=== PATIENT | female | born 1960 | race Caucasian/White ===

== ENCOUNTER → 2019-01-15 10:05 | Outpatient (CLI) | payer OTHER | END | disposition home or self-care (01) | LOC: D.HCCARDIO 10:05 | PROVIDERS: ATTEND Internal Medicine Cardiovascular Disease | DX: R94.31 Abnormal electrocardiogram [ECG] [EKG] (principal) ==

== ENCOUNTER 2019-02-11 06:56 | Outpatient (CLI) | payer OTHER ==
[~2019-02-11] VITALS: Ht 172.7 cm; Wt 81.8 kg
--- NOTE | ~2019-02-11 | HEMODYNAMI ---
PATIENT:PAWAN JOSEPH MEDICAL RECORD: [id number] : 58 LOCATION:[facility] ADMISSION DATE: 02/11/19 Generatedon:02/11/201912:33 Patient name: PAWAN JOSEPH Patient #: [id number] SSN: [id number] : 1960 Date of study: 02/11/2019 Page: Of Hemodynamic Procedure Report Patient Data Patient Demographics Procedure consent was obtained First Name: PAWAN Gender: Female Last Name: OPAL : 1960 Middle Initial: MARILYN Age: 58 year(s) Patient #: [id number] Race: SSN: [id number] Additional ID: [id number] Contact details Address: [address] [place] [address] State: [place] City: [place] Zip code: [address] Past Medical History Allergies Allergen Reaction Date Comments Reported Morphine 02/11/2019 Admission Admission Data Admission Date: 02/11/2019 Admission Time: 6:56 Arrival Date: 02/11/2019 Arrival Time: 0:00 Insurance Payor: Private health insurance [facility] #: [id number] Height (in.): 68.11 BSA: 1.96 (m2) Height (cm.): 173 BMI: 27.4 (kg/m2) Weight (lbs.): 180.78 Weight (kg.): 82 Lab Results Lab Result Date: 02/11/2019 Lab Result Time: 0:00 Biochemistry Name Units Result Min Max BUN mg/dl 20 --(----)*- 7 18 Creatinine mg/dl 0.7 --(*---)-- 0.6 1.3 eGFR ml/min 90 --(*---)-- 90 120 NONAFRICAN CBC Name Units Result Min Max Hematocrit % 43.4 --(*---)-- 42 54 Hemoglobin g/dl 14.5 --(*---)-- 13.5 17.5 Procedure Procedure Types Cath Procedure Diagnostic Procedure [facility] w/[facility] Procedure Description Procedure Date Procedure Date: 02/11/2019 Procedure Start Time: 12:19 Procedure End Time: 12:30 Procedure Staff Name Function Ramon Cruz MD Performing Physician Maureen Burleson RT Monitor Rosa Patiño RT Monitor Leidy Peters RT Scrub Shayne Goss RN Nurse Procedure Data Cath Procedure Fluoroscopy Diagnostic fluoroscopy Total fluoroscopy Time: 1.4 time: 1.4 min min Diagnostic fluoroscopy Total fluoroscopy dose: 361 dose: 361 mGy mGy Contrast Material Contrast Material Type Amount (ml) Isovue 300 56 Entry Location Entry Primary Successful Side Size Upsize Upsize Entry Closure Sanches ccessful Closure Location (Fr) 1 (Fr) 2 (Fr) Remarks Device Remarks Radial Right 6 Fr Mechanical artery Short Compression Estimated blood loss: 5 ml Diagnostic catheters Device Type Used For End Catheter Placement DIAGNOSTIC [place] 110cm 5 Procedure Fr catheter ([id number]) Procedure Complications No complications Procedure Medications Medication Administration Route Dosage Oxygen etCO2 Nasal cannula 2 l/min Lidocaine 2% added to field 20 Heparin Flush Bag added to field 2 bags (1000units/500ml NS) 0.9% NaCl I.V. 100 ml/hr Radial Cocktail I.A. 1 syringe (Verapamil 2mg/Nitro 400mcg/Heparin 1500units) Versed I.V. 2 mg Fentanyl I.V. 50 mcg Versed I.V. 1 mg Fentanyl I.V. 50 mcg Hemodynamics Rest BSA: 1.96 (m2) HGB: 14.5 (g/dl) O2 Consumption: Estimated: 187.09 (ml/min) O2 Co nsumption indexed: Estimated:95.45 (ml/min/m) Heart Rate: 71 (bpm) Pressure Samples Time Site Value (mmHg) Purpose Heart Use Rate(bpm) 12:21 LV 112/-2,4 Snapshot 83 Gradients Valve Time Site Site Mean SEP/DFP Peak To Heart Use 1 2 (mmHg) (sec/min) Peak Rate (mmHg) (bpm) Aortic 12:22 LV AO 87 Snapshots Pre Cath Intra NCS Post Cath Vital Signs Time Heart Resp SPO2 etCO2 NIBP (mmHg) Rhythm Pain Sedation Rate (ipm) (%) (mmHg) Status Level (bpm) 12:09:42 72 12 98 31.1 145/89(116) NSR 0 (11) 10(A) , No pain 12:13:56 79 11 98 15.5 127/73(96) NSR 0 (11) 10(A) , No pain 12:18:12 84 15 94 0 117/65(87) NSR 0 (11) 10(A) , No pain 12:22:24 86 16 95 0 103/69(90) NSR 0 (11) 9(A) , No pain 12:26:29 83 14 94 17.7 101/70(95) NSR 0 (11) 10(A) , No pain 12:30:35 96 45.2 117/66(90) NSR 0 (11) 10(A) , No pain Medications Time Medication Route Dose Verified Delivered Reason Notes Effectiveness by by 12:13:23 Oxygen etCO2 2 l/min Ramon Buffie used for Nasal Anthony Goss RN procedure cannula 12:13:30 Lidocaine 2% added 20ml Ramon Ramon for local to vial Anthony Cruz MD anesthetic field 12:13:37 Heparin Flush added 2 bags Ramon Ramon used for Bag to Anthony Cruz MD procedure (1000units/500ml field NS) 12:13:46 0.9% NaCl I.V. 100 Ramon Buffie Per ml/hr Anthony Goss RN physician 12:13:53 Radial Cocktail I.A. 1 Ramon Ramon for (Verapamil syringe Anthony Cruz MD vasodilation 2mg/Nitro 400mcg/Heparin 1500units) 12:19:59 Versed I.V. 2 mg Ramon Buffie for sedation Anthony Goss RN 12:20:05 Fentanyl I.V. 50 mcg Ramon Buffie for sedation Anthony Goss RN 12:24:34 Versed I.V. 1 mg Ramon Buffie for sedation Anthony Goss RN 12:24:38 Fentanyl I.V. 50 mcg Ramon Buffie for sedation Anthony Goss RN Procedure Log Time Note 12:18:47 18:40:47 Rose Bud band inflated with 8cc of air. 18:40:47 Post right radial artery:stable 11:53:31 Informed consent obtained and on chart 11:53:50 Procedure Status Elective Heart Cath (OP). 11:53:50 Time tracking: Regular hours (M-F 7:00 - 5:00) 11:53:56 Plan of Care:Hemodynamics will remain stable., Cardiac rhythm will remain stable., Comfort level will be maintained., Respiratory function will remain adequate., Patient/ family verbilizes understanding of procedure., Procedure tolerated without complication., Recovers from procedure without complications.. 11:54:26 H&P Date Dictated: 02/11/2019 Within 30 days and on chart., New H&P dictated by physician.. 11:55:11 Stress Test: yes; abnormal ANTERIOR AND LATERALLY 11:56:39 Patient allergic to Morphine 11:56:52 Maureen Burleson RT(R) sent for patient. Start room use. 12:02:33 Arrival Date: 02/11/2019 12:00:00 AM 12:02:53 Insurance Payor : Private health insurance 12:03:03 Patient Height : 68.11 inches 12:03:10 Patient Weight : 180.78 lbs 12:04:00 Lab Result : Hemoglobin 14.5 g/dl 12:04:00 Lab Result : Hematocrit 43.4 % 12:04:00 Lab Result : eGFR NONAFRICAN 90 ml/min 12:04:00 Lab Result : BUN 20 mg/dl 12:04:00 Lab Result : Creatinine 0.7 mg/dl 12:04:15 Patient received from Pre/Post Procedure Room to CCL 1 Alert and oriented. Tansferred to table in Supine position. 12:04:18 Warm blankets applied, and yesenia hugger turned on for patient comfort. 12:04:19 Correct patient and procedure confirmed by team. 12:04:20 ECG and BP/O2 sat monitors applied to patient. 12:08:38 Vital chart was started 12:08:39 Baseline sample Acquired. 12:08:48 Rhythm: sinus rhythm 12:08:50 Full Disclosure recording started 12:12:11 Pre-procedure instructions explained to patient. 12:12:12 Pre-op teaching completed and patient verbalized understanding. 12:12:16 Family in patients room. 12:12:20 Patient NPO since Midnight. 12:12:24 Is the patient allergic to Iodine/contrast media? No. 12:12:28 Was the patient premedicated? Yes 12:12:34 Is patient on blood thinner?No 12:12:41 Patient diabetic? No. 12:12:56 Patient not . Patient is over age 55. 12:12:58 - 12:12:59 ----Pre-sedation anethsthesia assessment.---- 12:13:04 Previous problem with sedation/anesthesia? No ? 12:13:07 Snore? Yes 12:13:14 Sleep apnea? Yes 12:13:18 Deviated septum? No 12:13:21 Opens mouth fully? Yes 12:13:23 Oxygen 2 l/min etCO2 Nasal cannula was administered by Shayne Goss RN; used for procedure; Verbal order read back and verified. 12:13:24 Sticks out tongue? Yes 12:13:30 Lidocaine 2% 20ml vial added to field was administered by Ramon Cruz MD ; for local anesthetic; Verbal order read back and verified. 12:13:37 Heparin Flush Bag (1000units/500ml NS) 2 bags added to field was administered by Ramon Cruz MD; used for procedure; Verbal order read back and verified. 12:13:42 Airway obstruction? Yes possible sleep apnea 12:13:46 0.9% NaCl 100 ml/hr I.V. was administered by Shayne Goss RN; Per physician; Verbal order read back and verified. 12:13:48 Dentures? No ? 12:13:53 Radial Cocktail (Verapamil 2mg/Nitro 400mcg/Heparin 1500units) 1 syring e I.A. was administered by Ramon Cruz MD; for vasodilation; Verbal order read back and verified. 12:14:12 Modified Jorge Alberto's test Ulnar < 7 seconds 12:14:18 Patient pain scale 0/10 ?. 12:14:35 IV patent on arrival in left forearm with 0.9% NaCl at [facility]. 12:14:42 Pre procedure: right dorsailis pedis pulse 2+ Normal; easily identifiable; not easily obliterated 12:14:54 Lab results completed and on chart. 12:17:06 --------ALL STOP TIME OUT------ 12:17:06 Final Timeout: patient, procedure, and site verified with staff and physician. All members of the team are in agreement. 12:17:09 Right Radial & Right Groin site verified by team. 12:17:12 Fire Safety Assessment: A--An alcohol-based skin anteseptic being used preoperatively., C--Open oxygen or nitrous oxide is being used., D--An ESU, laser, or fiber-optic light is being used. 12:17:15 Physical assessment completed. ASA score P 2 - A patient with mild systemic disease as per Ramon Cruz MD. 12:17:18 1) 90+ Normal kidney functon but urine findings or structural abnormalities or genetic trait point to kidney disease. 12:17:20 Maximum allowable contrast dose (3.7 X eGFR X 0.75)250 ml. 12:17:24 Sedation plan: IV Moderate Sedation Medication:Versed, Fentanyl 12:17:27 Risk of Mortality: .1 12:17:30 Risk of blood transfusion: .4 12:17:32 Risk of FLOR: .2 12:17:36 Right Radial & Right Groin area was prepped with chlora-prep and draped in sterile fashion 12:17:37 Alarms reviewed by R. N. 12:17:38 Sharps counted by scrub and verified by R.N. 12:17:44 Procedure started. 12:19:07 Zero performed for pressure channel P1 12:19:27 Local anesthetic to right radial artery with Lidocaine 2% by Ramon Cruz MD.INITIAL ACCESS ONLY 12:19:38 Zero performed for pressure channel P1 12:19:53 Zero performed for pressure channel P1 12:19:59 Versed 2 mg I.V. was administered by Shayne Goss RN; for sedation; Verbal order read back and verified. 12:20:05 Fentanyl 50 mcg I.V. was administered by Shayne Goss RN; for sedation; Verbal order read back and verified. 12:20:16 A 6 Fr Short sheath was inserted into the Right Radial artery 12:20:25 Use device set Radial Dx or PCI 12:20:27 ACIST Syringe (01725) opened to sterile field. 12:20:27 Medline Cath Pack ([id number]) opened to sterile field. 12:20:28 Bag Decanter (2002) opened to sterile field. 12:20:29 ACIST Hand Control (67240) opened to sterile field. 12:20:30 ACIST Manifold (99615) opened to sterile field. 12:20:31 Tegaderm 4 x 4 (1626W) opened to sterile field. 12:20:32 MBrace Wrist Support ([id number]) opened to sterile field. 12:20:33 NEEDLE Cook 21G 4cm Radial (O30384) opened to sterile field. 12:20:36 SHEATH 6FR RAIN (1089591) opened to sterile field. 12:20:54 A DIAGNOSTIC [place] 110cm 5 Fr catheter (925468) was advanced over the wire and used for Procedure. 12:21:47 LV hemodynamics recorded. 12:22:00 EF : 60 % 12:22:23 LV gram done using LOPEZ 12::29 Injector settings: Ml/sec: 5, Volume: 15, 12:22:39 LCA angiography performed. 12::49 Injector settings: Ml/sec: 3, Volume: 6, 12:24:18 RCA angiography performed. 12:24:32 Injector settings: Ml/sec: 3, Volume: 6, 12:24:34 Versed 1 mg I.V. was administered by Shayne Goss RN; for sedation; Verbal order read back and verified. 12:24:38 Fentanyl 50 mcg I.V. was administered by Shayne Goss RN; for sedation; Verbal order read back and verified. 12:25:13 Catheter removed. 12:25:29 Procedure ended.(Physican Out) 12:25:43 ZEPHYR REGULAR TR BAND (937359) opened to sterile field. 12:25:55 Sheath removed intact; hemostasis achieved with Mechanical Compression to the Right Radial artery. 12:26:11 Contrast amount:Isovue 300 56ml. 12:26:24 Fluoroscopy time 01.40 minutes. 12:26:35 Fluoroscopy dose: 361 mGy 12:26:35 Flurop Dose total: 361 12:26:47 Dose Area Product 94314 mGy/cm. 12:26:56 Maximum allowable dose exceeded? No. 12:26:58 Sharps counted by scrub and verified by R.N. 12:27:06 Insertion/operative site no bleeding no hematoma. 12:27:38 Post Procedure Pulses reassessed and unchanged 12:27:44 Post-procedure physical assessment completed. ASA score P 2 - A patient with mild systemic disease as per Ramon Cruz MD. 12:27:49 Post procedure rhythm: unchanged. 12:27:54 Estimated blood loss: 5 ml 12:27:55 Post procedure instruction explained to patient.Patient verbalizes understanding. 12:27:58 Patient needs reinforcement of post procedure teaching. 12:29:02 Procedure and supply charges have been captured, reviewed, submitted an d are correct. 12:30:22 Procedure Complication : No complications 12:30:25 Vital chart was stopped 12:30:28 [facility] Findings: mild to moderate CAD (<70%) 12:30:34 Operative report dictated upon procedure completion. 12:30:35 See physician's report for complete and final results. 12:30:38 Report given to Pre/Post Procedure Room. 12:30:42 Patient transfered to Pre/Post Procedure Room with Stretcher. 12:30:46 Procedure ended. 12:30:46 Full Disclosure recording stopped 12:30:51 End room use (Document Last) 12:31:13 End room use (Document Last) Device Usage Item Name Manufacture Quantity Catalog Hospital Part Current Minima l Lot# / Number Charge Number Stock Stock Serial# Code ACIST Acist 1 98101 [id number] [id number] 20 Syringe Medical (54501) Systems Inc Medline Medline 1 [id number] 57831 [id number] 5 Cath Pack ([id number]) Bag Microtek 1 2001S 323678 20172 179391 5 Decanter Medical Inc. () ACIST Hand Acist 1 71815 379680 130021 305379 5 Control Medical (31466) Systems Inc ACIST Acist 1 24521 739802 432213 307854 5 Manifold Medical (19019) Systems Inc Tegaderm 4 3M 1 1626W 876229 013276 011605 5 x 4 (1626W) MBrace Advanced 1 140-0250-00 410121 16956 270133 5 Wrist Vascular Support Dynamics ([id number]) NEEDLE Cook Cook Medical 1 [id number] 516394 459849 268262 5 21G 4cm Radial (B39462) SHEATH 6FR Cardinal 1 [id number] 697428 8943037 571114 5 [facility] (9971642) DIAGNOSTIC Terumo 1 40-2856 138796 493521 378809 5 [place] 110cm 5 Fr catheter (190835) ZEPHYR Cardinal 1 335889 711435 7364383 645723 5 REGULAR TR Health BAND (883461) Signature Audit [place] Stage Time Signature Unsigned Intra-Procedure 02/11/2019 Rosa 12:31:13 PM Kaylyn RT(R) (CV) Intra-Procedure 02/11/2019 Shayne Goss RN 12:31:48 PM Intra-Procedure 02/11/2019 Ramon Cruz MD 12:33:22 PM [place] [id number]
[2019-02-11] MEDS ORDERED: PROTONIX40 MG PO (08:06)
[2019-02-11] MEDS ORDERED: NORVASC5 MG PO (08:06)
[2019-02-11 08:25] VITALS: BP 141/79; Ht 172.7 cm; Wt 81.8 kg
[2019-02-11 08:32] LABS: BASOPHILS 0.2 % (0-2); EOSINOPHILS 1.4 % (0-7); HEMATOCRIT 43.4 % (36.0-48.0); HEMOGLOBIN 14.5 g/dL (12-16); IMMATURE GRANULOCYTES 0.3 % (0-5); LYMPHOCYTES 21.3 % (15-50); MCH 30.6 pg (26.0-34.0); MCHC 33.4 g/dL (31.0-37.0); MCV 91.6 fL (80.0-100.0); MEAN PLATELET VOLUME 10.1 fL (7.4-10.4); MONOCYTES 5.6 % (2-11); NEUTROPHILS 71.2 % (40-80); PLATELET COUNT 240 10x3/uL (130-400); RBC 4.74 10x6/uL (4.00-5.40); RDW 13.3 % (11.5-14.5); WBC 9.1 10x3/uL (4.8-10.8)
[2019-02-11 08:44] LABS: CALC OSMOLALITY 285 mosm/kg (275-300); CALCIUM 9.9 mg/dL (8.5-10.1); CARBON DIOXIDE 28.5 mmol/L (21.0-32.0); CHLORIDE - SERUM 104 mmol/L (98-107); CREATININE - SERUM 0.7 mg/dL (0.6-1.3); GLUCOSE 127 mg/dL (74-106); POTASSIUM - SERUM 4.1 mmol/L (3.5-5.1); SODIUM 141 mmol/L (136-145); UREA NITROGEN 20 mg/dL (7-18); eGFR NON AFRICAN AMERICAN > 90 mL/min (90-120)
--- NOTE | 2019-02-11 12:35 | NUR ---
PATIENT ARRIVED TO ROOM 6, PLACED ON CM. VSS ON ROOM AIR. RIGHT Z BAND IN PLACE WITH WRIST IMMOBILIZER. NO S/S OF BLEEDING OR HEMATOMA.
--- NOTE | 2019-02-11 12:50 | NUR ---
PATIENT RESTING, VSS ON ROOM AIR. RIGHT Z BAND IN PLACE, NO S/S OF BLEEDING OR HEMATOMA. NO C/O PAIN, NUMBNESS, OR TINGLING. SPOUSE PRESENT AT BEDSIDE. NO N/V.
--- NOTE | 2019-02-11 13:20 | NUR ---
RIGHT RADIAL SITE IS CDI, NO S/S OF BLEEDING OR HEMATOMA. NO C/O PAIN, NUMBNESS, OR TINGLING. PATIENT INTERMITTENTLY RESTING. VSS ON ROOM AIR.
--- NOTE | 2019-02-11 13:40 | NUR ---
4CC OF AIR REMOVED FROM Z BAND PER PROTOCOL, NO S/S OF BLEEDING OR HEMATOMA. PATIENT AWAKE, SITTING UP EATING SANDWICH. VSS ON ROOM AIR. NO N/V. WILL CONTINUE TO MONITOR.
--- NOTE | 2019-02-11 14:10 | NUR ---
REMAINING AIR REMOVED FROM Z BAND, NO S/S OF BLEEDING OR HEMATOMA. DRESSING APPLIED WITH 2X2 AND TEGADERM. VSS ON ROOM AIR. PIV REMOVED WITH CATHETER INTACT. WRITTEN AND VERBAL DISCHARGE INSTRUCTIONS GIVEN TO PATIENT, PATIENT VOICES UNDERSTANDING. PATIENT DISCONNECTED FROM MONITOR TO GET DRESSED.
--- NOTE | 2019-02-11 14:40 | NUR ---
PATIENT GETTING DRESSED, THIS RN ARRIVED IN ROOM TO FIND SMALL AMOUNT OF BLEEDING AND A HEMATOMA THE SIZE OF A QUARTER AT THE RIGHT RADIAL SITE. MANUAL PRESSURE APPLIED FOR FIVE MINUTES WITH NO FURTHER S/S OF BLEEDING. MANUAL PRESSURE APPLIED TO HEMATOMA SITE IN ORDER TO SOFTEN TISSUE. NO FURTHER S/S OF BLEEDING OR HEMATOMA. NEW DRESSING APPLIED WITH 2X2 AND TEGADERM. WILL CONTINUE TO MONITOR.
--- NOTE | 2019-02-11 15:00 | NUR ---
RIGHT RADIAL SITE IS CDI, NO S/S OF BLEEDING OR HEMATOMA. NO C/O PAIN, NUMBNESS, OR TINGLING. PATIENT TRANSPORTED VIA WHEELCHAIR TO CAR WITH SPOUSE DRIVING, ALL BELONGINGS WITH PATIENT.
== END 2019-02-11 15:00 ==
LOC: D.CATH 06:56
PROVIDERS: ATTEND Internal Medicine Cardiovascular Disease
DX: I20.9 Angina pectoris, unspecified (principal); R94.39 Abnormal result of other cardiovascular function study; I10 Essential (primary) hypertension; E78.5 Hyperlipidemia, unspecified